=== PATIENT | female | born 1995 | race Two or more races ===

== ENCOUNTER 2020-02-12 18:03 | Emergency (ER) | payer MEDICAID, OTHER ==
[~2020-02-12] VITALS: Ht 149.9 cm; Wt 56.7 kg
[2020-02-12 19:33] LABS: Urine Bacteria FEW /hpf (None Seen); Urine Blood 2+ /uL (Negative); Urine Specific Gravity 1.021 (1.001-1.035); Urine WBC 407 /hpf (0 - 5)
[2020-02-12 20:43] VITALS: BP 126/65
== END 2020-02-12 22:39 | disposition home or self-care (01) ==
LOC: ER 18:03
DX: N39.0 Urinary tract infection, site not specified (principal); Z32.02 Encounter for pregnancy test, result negative
CPT/HCPCS: 81001; 81025

== ENCOUNTER 2021-07-23 19:13 | Emergency (ER) | payer MEDICAID ==
[~2021-07-23] VITALS: Ht 149.9 cm; Wt 56.7 kg
[2021-07-23 20:01] LABS: Mean Corpuscular Hemoglobin 25.9 pg (28.0-32.0)
[2021-07-23 20:03] LABS: Basophils # (auto) 0.1 10 ^3/uL (0-0.2); Eosinophils # (auto) 0.4 10 ^3/uL (0-0.8); Eosinophils % (auto) 5.7 % (0.0-7.0); Lymphocytes # (auto) 1.6 10 ^3/uL (0.4-5.4); Lymphocytes % (auto) 23.5 % (10.0-50.0); Mean Corpuscular Hgb Conc. 33.2 g/dL (32.0-36.0); Monocytes # (auto) 0.5 10 ^3/uL (0-1.3); Neutrophils # (auto) 4.2 10 ^3/uL (1.6-8.6); Neutrophils % (auto) 61.8 % (37.0-80.0); Red Blood Cells 4.61 10^6/uL (4.0-5.20); Red Cell Distribution Width 15.4 % (11.8-14.3); White Blood Cell 6.8 10^3/uL (4.4-10.8)
[2021-07-23 20:20] LABS: Albumin 4.2 g/dL (3.4-5.0); Calcium 9.7 mg/dL (8.5-10.1); Potassium 3.8 mmol/L (3.5-5.1)
[2021-07-23 20:23] LABS: BUN/Creatinine Ratio 16.9; Bilirubin, Total 0.5 mg/dL (0.2-1.0); Total Protein 8.1 g/dL (6.4-8.2)
[2021-07-24 00:15] LABS: Urine Bacteria FEW /hpf (None Seen); Urine Blood Negative /uL (Negative); Urine Specific Gravity 1.007 (1.001-1.035); Urine WBC 2 /hpf (0 - 5)
[2021-07-24 01:00] VITALS: BP 104/55
== END 2021-07-24 01:25 | disposition home or self-care (01) ==
LOC: ER 19:15
DX: O20.0 Threatened abortion (principal); J45.909 Unspecified asthma, uncomplicated; F12.10 Cannabis abuse, uncomplicated; F15.10 Other stimulant abuse, uncomplicated; Z88.6 Allergy status to analgesic agent; Z3A.01 Less than 8 weeks gestation of pregnancy
CPT/HCPCS: 36415; 76801; 80053; 81001; 84702; 85025

== ENCOUNTER 2021-10-14 13:10 | Emergency (ER) | payer MEDICAID ==
[~2021-10-14] VITALS: Ht 149.9 cm; Wt 55.8 kg
[2021-10-14 14:09] LABS: Basophils # (auto) 0 10 ^3/uL (0-0.2); Eosinophils # (auto) 0.2 10 ^3/uL (0-0.8); Monocytes # (auto) 0.3 10 ^3/uL (0-1.3); Neutrophils # (auto) 2.6 10 ^3/uL (1.6-8.6); Nucleated Red Blood Cells % 0.1 %
[2021-10-14 14:10] LABS: Basophils % (auto) 0.9 % (0.0-2.0); Eosinophils % (auto) 4.3 % (0.0-7.0); Hemoglobin 11.9 g/dL (12.2-16.2); Lymphocytes # (auto) 1.2 10 ^3/uL (0.4-5.4); Lymphocytes % (auto) 27.7 % (10.0-50.0); Mean Corpuscular Hemoglobin 25.2 pg (28.0-32.0); Mean Corpuscular Hgb Conc. 33.1 g/dL (32.0-36.0); Mean Corpuscular Volume 76.3 fL (80.0-100.0); Monocytes % (auto) 6.9 % (0.0-12.0); Neutrophils % (auto) 60.2 % (37.0-80.0); Red Blood Cells 4.72 10^6/uL (4.0-5.20); Red Cell Distribution Width 15.1 % (11.8-14.3); White Blood Cell 4.4 10^3/uL (4.4-10.8)
[2021-10-14 14:25] LABS: Albumin 3.7 g/dL (3.4-5.0); Calcium 8.8 mg/dL (8.5-10.1); Potassium 4.4 mmol/L (3.5-5.1)
[2021-10-14 14:27] LABS: BUN/Creatinine Ratio 10.1
[2021-10-14 14:30] LABS: Bilirubin, Total 0.3 mg/dL (0.2-1.0); Total Protein 7.6 g/dL (6.4-8.2)
[2021-10-14 17:00] VITALS: BP 114/65
== END 2021-10-14 17:13 | disposition home or self-care (01) ==
LOC: ER 13:10
DX: N93.8 Other specified abnormal uterine and vaginal bleeding (principal); J45.909 Unspecified asthma, uncomplicated; F12.10 Cannabis abuse, uncomplicated; F15.10 Other stimulant abuse, uncomplicated; Z88.8 Allergy status to other drugs, medicaments and biological substances
CPT/HCPCS: 36415; 76856; 80053; 84702; 85025

== ENCOUNTER 2022-01-02 20:25 | Emergency (ER) | payer MEDICAID ==
[~2022-01-02] VITALS: Ht 149.9 cm; Wt 56.8 kg
[2022-01-02 23:27] VITALS: BP 102/78
== END 2022-01-02 23:59 | disposition home or self-care (01) ==
LOC: ER 20:25
DX: B34.9 Viral infection, unspecified (principal); J45.909 Unspecified asthma, uncomplicated; F12.10 Cannabis abuse, uncomplicated; F15.10 Other stimulant abuse, uncomplicated

== ENCOUNTER 2022-05-07 04:40 | Emergency (ER) | payer MEDICAID ==
[~2022-05-07] VITALS: Ht 149.9 cm; Wt 55.4 kg
[2022-05-07 08:30] LABS: Urine Bacteria FEW /hpf (None Seen); Urine Blood Negative /uL (Negative); Urine Specific Gravity 1.021 (1.001-1.035); Urine WBC 2 /hpf (0 - 5)
[2022-05-07 09:14] VITALS: BP 112/91
[2022-05-07] MEDS ORDERED: METR500T14 PO (11:32)
== END 2022-05-07 11:36 | disposition home or self-care (01) ==
LOC: ER 04:40
DX: N76.0 Acute vaginitis (principal); B96.89 Other specified bacterial agents as the cause of diseases classified elsewhere; K42.9 Umbilical hernia without obstruction or gangrene; J45.909 Unspecified asthma, uncomplicated; Z88.8 Allergy status to other drugs, medicaments and biological substances
CPT/HCPCS: 74176; 81001; 81025; 87210

== ENCOUNTER 2022-12-11 21:12 | Emergency (ER) | payer MEDICAID ==
[~2022-12-11] VITALS: Ht 149.9 cm; Wt 48.6 kg
[~2022-12-11 21:12] MED LIST: METR-344 PO
[2022-12-11 22:03] LABS: Urine Bacteria NONE SEEN /hpf (None Seen); Urine Blood Negative /uL (Negative); Urine Specific Gravity 1.019 (1.001-1.035); Urine WBC 4 /hpf (0 - 5)
[2022-12-12 04:50] VITALS: BP 113/74; PULSE 69; RESP 14; TEMP 97.5; O2SAT 100
[2022-12-12] MEDS ORDERED: NITR-87 PO (06:17)
[2022-12-12] MEDS ORDERED: PERCOT PO (06:17)
== END 2022-12-12 06:29 | disposition home or self-care (01) ==
LOC: ER 21:12
DX: R30.0 Dysuria (principal); N39.0 Urinary tract infection, site not specified; J45.909 Unspecified asthma, uncomplicated; Z79.899 Other long term (current) drug therapy; Z88.8 Allergy status to other drugs, medicaments and biological substances
CPT/HCPCS: 74176; 81001; 81025